=== PATIENT | male | born 1955 | race Caucasian/White ===

== ENCOUNTER → 2018-10-11 | Outpatient (CLI) | payer BC ==
[~2018-10-11] MED LIST: BLEPH-10 15 ML15 ML OP; CITALOPRAM HYDR20 MG PO; COLACE 100100 MG/CAP PO; LORTAB 5/500 501 TAB PO; MVI; NO HOME MEDICATIONS; PHENERGAN 25 TA25 MG PO
== END ==
LOC: COL.VAS 11:58
DX: R09.89 Other specified symptoms and signs involving the circulatory and respiratory systems (principal)

== ENCOUNTER 2023-02-10 10:15 | Outpatient (RCR) | payer MEDICARE, BC | END 2023-02-12 | disposition home or self-care (01) | LOC: WSST | DX: R13.12 Dysphagia, oropharyngeal phase (principal); R05.3 Chronic cough ==

== ENCOUNTER 2023-03-14 09:45 | Outpatient (RCR) | payer MEDICARE, BC | END 2023-03-15 | disposition home or self-care (01) | LOC: WSST | DX: R13.12 Dysphagia, oropharyngeal phase (principal) ==